=== PATIENT | male | born 2005 | race Two or more races ===

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

== ENCOUNTER 2025-07-23 11:27 | Emergency (ER) | payer MEDICAID ==
[~2025-07-23] VITALS: Ht 177.8 cm; Wt 77.1 kg
[~2025-07-23 11:27] MED LIST changes: +ACET-2605 PO
[2025-07-23] MEDS ORDERED: KETOROLAC TROMETHAMINE 15 MG/ML VIAL ONE (11:47)
[2025-07-23] MEDS: KETOROLAC TROMETHAMINE 15 MG/ML VIAL IM ONE (11:52)
[2025-07-23] MEDS ORDERED: NAPR-1164 PO (12:17)
[2025-07-23 12:28] VITALS: BP 121/75; TEMP 97.9; O2SAT 100
== END 2025-07-23 12:28 | disposition home or self-care (01) ==
LOC: ER 11:34
DX: S39.012A Strain of muscle, fascia and tendon of lower back, initial encounter (principal); X50.0XXA Overexertion from strenuous movement or load, initial encounter; Y93.89 Activity, other specified; Y92.89 Other specified places as the place of occurrence of the external cause; Y99.8 Other external cause status
CPT/HCPCS: 99283; 96372; J1885